=== PATIENT | male | born 1945 | race Caucasian/White ===

== ENCOUNTER 2025-07-28 19:40 | Inpatient (IN) ==
[2025-07-28] MEDS ORDERED: IOPAMIDOL 100 ML BOTTLE IV ONE (19:41)
[2025-07-28] MEDS: PIPERACILLIN SODIUM/TAZOBACTAM 3.375 GM in DEXTROSE 5% IN WATER 50 ML IV ONE (20:21)
[2025-07-28] MEDS: ACETAMINOPHEN 500 MG TABLET PO ONE (20:21)
[2025-07-28 20:25] LABS: Basophils # (Auto) 0.02 K/mcL (0.00-0.30); Basophils % (Auto) 0.1 % (0.0-2.0); Eosinophils # (Auto) 0.18 K/mcL (0.00-0.70); Eosinophils % (Auto) 0.8 % (0.0-7.0); Hematocrit 41.3 % (40.1-51.0); Hemoglobin 13.4 g/dL (13.7-17.5); Lymphocytes # (Auto) 1.07 K/mcL (1.50-4.80); Lymphocytes % (Auto) 4.8 % (15.5-49.0); Mean Corpuscular HGB Conc 32.4 g/dL (31.0-36.0); Monocytes # (Auto) 1.03 K/mcL (0.10-0.90); Monocytes % (Auto) 4.6 % (1.0-12.0); Neutrophils % (Auto) 89.1 % (38.0-78.0); Platelet Count 220 K/mcL (140-440); RBC 4.28 M/mcL (4.63-6.08); WBC 22.5 K/mcL (4.5-11.0)
[2025-07-28 20:38] LABS: ALT/SGPT 27 U/L (<40); AST/SGOT 29 U/L (<40); Albumin 3.7 gm/dL (3.2-5.2); Albumin/Globulin Ratio 1.1 (1.0-2.3); Alkaline Phosphatase 119 U/L (39-117); Anion Gap 14.0 (8.0-16.0); Bilirubin,Total 0.5 mg/dL (0.1-1.0); Blood Urea Nitrogen 26 mg/dL (8-23); Calcium 9.1 mg/dL (8.6-10.4); Carbon Dioxide 20 mmol/L (22-30); Chloride 102 mmol/L (96-108); Globulin 3.5 gm/dL (2.2-3.7); Glucose 220 mg/dL (70-105); Potassium 4.6 mmol/L (3.3-5.1); Sodium 136 mmol/L (133-145)
[2025-07-28] MEDS: ACETAMINOPHEN 1,000 MG/100 ML BAG IV ONE (20:39)
[2025-07-28 21:03] LABS: INR 1.0 (0.9-1.1); Prothrombin Time 13.9 sec (11.9-14.5)
[2025-07-28] MEDS: VANCOMYCIN 2,000 MG in 0.9 % SODIUM CHLORIDE 500 ML IV ONE (21:35)
[2025-07-28] MEDS: KETOROLAC 15 MG/ML VIAL IV ONE (21:47)
[2025-07-28] MEDS: ONDANSETRON 4 MG/2 ML VIAL IV ONE (21:59)
[2025-07-28] MEDS: ONDANSETRON 4 MG/2 ML VIAL ONE (21:59)
[2025-07-28 22:28] LABS: Bilirubin,Urine Negative (Negative); Color,Urine Yellow; Glucose,Urine (UA) 1000(3+) mg/dL (Negative); Ketones,Urine Negative (Negative); Leukocyte Esterase,Urine Negative /uL (Negative); PH,Urine 6.0 (5.0-9.0); Protein,Urine Negative (Negative); Specific Gravity,Urine 1.010 (1.000-1.035); Urobilinogen,Urine Normal
[2025-07-28] MEDS ORDERED: ACETAMINOPHEN 325 MG TABLET PO PRN (23:22)
[2025-07-28] MEDS ORDERED: ONDANSETRON 4 MG/2 ML VIAL IV PRN (23:22)
[2025-07-28] MEDS: IPRATROPIUM/ALBUTEROL 3 ML AMPUL.NEB NEB PRN (23:44)
[2025-07-28] MEDS: 0.9 % SODIUM CHLORIDE 1,000 ML IV SCH (23:47)
[2025-07-29] MEDS ORDERED: VANCOMYCIN PER PHARMACY IV SCH (05:00)
[2025-07-29] MEDS: cefTRIAXone 2 GM in DEXTROSE 5% IN WATER 50 ML IV SCH (05:17)
[2025-07-29] MEDS: cefTRIAXone 1 GM VIAL ONE (05:20)
[2025-07-29 06:41] LABS: Basophils # (Auto) 0.04 K/mcL (0.00-0.30); Basophils % (Auto) 0.1 % (0.0-2.0); Eosinophils # (Auto) 0 K/mcL (0.00-0.70); Eosinophils % (Auto) 0 % (0.0-7.0); Hematocrit 40.4 % (40.1-51.0); Hemoglobin 12.8 g/dL (13.7-17.5); Lymphocytes # (Auto) 0.75 K/mcL (1.50-4.80); Lymphocytes % (Auto) 1.7 % (15.5-49.0); Mean Corpuscular HGB Conc 31.7 g/dL (31.0-36.0); Monocytes # (Auto) 1.93 K/mcL (0.10-0.90); Monocytes % (Auto) 4.4 % (1.0-12.0); Neutrophils % (Auto) 91.1 % (38.0-78.0); Platelet Count 210 K/mcL (140-440); RBC 4.04 M/mcL (4.63-6.08); WBC 44.4 K/mcL (4.5-11.0)
[2025-07-29 06:46] LABS: ALT/SGPT 26 U/L (<40); AST/SGOT 36 U/L (<40); Albumin 3.3 gm/dL (3.2-5.2); Albumin/Globulin Ratio 1.0 (1.0-2.3); Alkaline Phosphatase 105 U/L (39-117); Anion Gap 13.0 (8.0-16.0); Bilirubin,Direct 0.3 mg/dL (<0.3); Bilirubin,Total 0.6 mg/dL (0.1-1.0); Blood Urea Nitrogen 29 mg/dL (8-23); Calcium 8.4 mg/dL (8.6-10.4); Carbon Dioxide 19 mmol/L (22-30); Chloride 103 mmol/L (96-108); Globulin 3.3 gm/dL (2.2-3.7); Glucose 280 mg/dL (70-105); Phosphorous 3.4 mg/dL (2.5-4.5); Potassium 5.3 mmol/L (3.3-5.1); Sodium 135 mmol/L (133-145); Triglycerides 134 mg/dL (<150); Uric Acid 8.4 mg/dL (2.5-8.0)
[2025-07-29] MEDS ORDERED: DEXTROSE 50% 50 ML VIAL IV PRN (06:49)
[2025-07-29] MEDS ORDERED: DEXTROSE 31 GM ORAL.SUSP PO PRN (06:49)
[2025-07-29] MEDS ORDERED: ONDANSETRON 4 MG/2 ML VIAL IV PRN (06:55)
[2025-07-29] MEDS ORDERED: LACTULOSE 20 GM/30 ML ORAL.SOL PO PRN (06:55)
[2025-07-29] MEDS ORDERED: SENNOSIDES 1 TABLET PO PRN (06:55)
[2025-07-29] MEDS: 0.9 % SODIUM CHLORIDE 1,000 ML IV ONE ×3 (07:08→07:38)
[2025-07-29] MEDS: ACETAMINOPHEN 1,000 MG/100 ML BAG IV PRN (07:08)
[2025-07-29] MEDS ORDERED: ALBUTEROL SULFATE 2.5 MG/3 ML NEBULIZER NEB PRN (07:17)
[2025-07-29 07:25] LABS: Estimated Average Glucose(eAG) 180 mg/dL; Hemoglobin A1C 7.9 % Hgb (4.0-6.0)
[2025-07-29] MEDS ORDERED: INSULIN LISPRO 1 UNIT/0.01 ML UNIT SQ SCH (07:30)
[2025-07-29] MEDS: SODIUM ZIRCONIUM CYCLOSILICATE 10 GM PACKET PO SCH (07:36)
[2025-07-29] MEDS: INSULIN LISPRO 1 UNIT/0.01 ML UNIT SQ SCH (07:36)
[2025-07-29] MEDS: 0.9 % SODIUM CHLORIDE 1,000 ML IV SCH ×2 (07:54→09:14)
[2025-07-29] MEDS: INSULIN GLARGINE, HUMAN 1 UNIT/0.01 ML SQ SCH (09:54)
[2025-07-29] MEDS: HEPARIN 5,000 UNIT/ML VIAL SQ SCH (09:54)
[2025-07-29] MEDS: ACETAMINOPHEN 325 MG TABLET PO PRN (12:26)
[2025-07-29] MEDS: 0.9 % SODIUM CHLORIDE 10 ML SYRINGE IV SCH (14:44)
[2025-07-29 15:09] LABS: Albumin 3.2 gm/dL (3.2-5.2); Anion Gap 9.0 (8.0-16.0); Blood Urea Nitrogen 30 mg/dL (8-23); Calcium 8.1 mg/dL (8.6-10.4); Carbon Dioxide 22 mmol/L (22-30); Chloride 106 mmol/L (96-108); Glucose 199 mg/dL (70-105); Phosphorous 3.5 mg/dL (2.5-4.5); Potassium 4.7 mmol/L (3.3-5.1); Sodium 137 mmol/L (133-145)
[2025-07-29] MEDS: VANCOMYCIN 1,750 MG in 0.9 % SODIUM CHLORIDE 500 ML IV SCH (16:59)
[2025-07-29] MEDS: HALOPERIDOL LACTATE 5 MG/ML VIAL ONE (21:39)
[2025-07-29] MEDS: HALOPERIDOL LACTATE 5 MG/ML VIAL IV PRN (21:39)
[2025-07-29] MEDS: FUROSEMIDE 100 MG/10 ML VIAL IV ONE ×2 (22:57→23:40)
[2025-07-29] MEDS ORDERED: LORazepam 2 MG/ML VIAL IV PRN (23:11)
[2025-07-29] MEDS ORDERED: DEXMEDETOMIDINE 400 MCG in PREMIX 1 BAG IV SCH (23:15)
[2025-07-30] MEDS ORDERED: 0.9 % SODIUM CHLORIDE 10 ML SYRINGE IV SCH (06:00)
== END 2025-07-30 01:15 | disposition expired | DRG 871 ==
LOC: ED 19:40 → ICU 07-29 00:12
PROVIDERS: ADMIT Internal Medicine; ATTEND Internal Medicine